=== PATIENT | male | born 1955 ===

== ENCOUNTER 2022-10-15 18:00 | Emergency (ER) | payer MEDICARE ==
[~2022-10-15] VITALS: Ht 182.9 cm; Wt 100.0 kg
[2022-10-15 18:33] VITALS: BP 139/91
--- NOTE | 2022-10-15 21:22 | NUR ---
PT STATED HE SWALLOWED SOME WATER WHILE IN THE LOBBY WHICH CLEARED THE OBSTRUCTION. STATED HE IS FINE NOW AND LEAVING TO GO HOME.
== END 2022-10-15 21:29 | disposition left against medical advice (07) ==
LOC: ER 18:02
DX: Z00.00 Encounter for general adult medical examination without abnormal findings (principal); Z53.21 Procedure and treatment not carried out due to patient leaving prior to being seen by health care provider
CPT/HCPCS: 99281